=== PATIENT | male | born 1980 | race Caucasian/White ===

== ENCOUNTER → 2016-12-25 | Outpatient (CLI) | payer BC ==
--- NOTE | 2016-12-26 07:32 | REP ---
RIGHT SECOND FINGER SERIES: 12/25/2016 CLINICAL HISTORY: The patient states unable to flex finger for about 6 months. FINDINGS: The four view show the MCP and IP joints intact. There is no contour deformity of the finger. I do not see subluxation or mallet deformity of the finger. There is no focal bone lesion. Adjacent bones are intact. IMPRESSION: 1. Negative radiograph for fracture, avulsion or other acute finding. Signed by Valente Jensen MD 12/26/2016 09:32 A
== END ==
LOC: M RAD 16:13
PROVIDERS: ATTEND Physician Assistant
DX: S69.91XA Unspecified injury of right wrist, hand and finger(s), initial encounter (principal); X58.XXXA Exposure to other specified factors, initial encounter; Y92.89 Other specified places as the place of occurrence of the external cause; Y93.89 Activity, other specified; Y99.8 Other external cause status

== ENCOUNTER 2017-02-11 10:42 | Emergency (ER) | payer OTHER, BC ==
[~2017-02-11] VITALS: Ht 162.6 cm; Wt 58.6 kg
[2017-02-11 10:42] VITALS: BP 134/94
[2017-02-11] MEDS ORDERED: ALEV220C2 PO (10:52)
[2017-02-11] MEDS ORDERED: IBUP80TA PO (11:45)
== END 2017-02-11 12:15 | disposition home or self-care (01) ==
LOC: M ED 10:42
DX: S69.91XA Unspecified injury of right wrist, hand and finger(s), initial encounter (principal); X50.9XXA Other and unspecified overexertion or strenuous movements or postures, initial encounter; Y92.9 Unspecified place or not applicable; Y93.89 Activity, other specified; Y99.0 Civilian activity done for income or pay; Z88.5 Allergy status to narcotic agent

== ENCOUNTER 2017-02-15 07:43 | Emergency (ER) | payer OTHER, BC ==
[~2017-02-15] VITALS: Ht 162.6 cm; Wt 58.6 kg
[~2017-02-15 07:43] MED LIST: ALEV220C2 PO; IBUP80TA PO
[2017-02-15] MEDS ORDERED: DICL75TA PO (09:03)
[2017-02-15 09:09] VITALS: BP 143/92
== END 2017-02-15 09:10 | disposition home or self-care (01) ==
LOC: M ED 07:43
DX: M77.8 Other enthesopathies, not elsewhere classified (principal); Z88.5 Allergy status to narcotic agent

== ENCOUNTER → 2019-06-08 | Outpatient (REF) | payer MEDICAID ==
[~2019-06-08] MED LIST changes: +DICL75TA PO
[2019-06-08 14:49] LABS: SEMEN APPEARANCE OPAQUE (OPAQUE); SEMEN VISCOSITY LIQUID (LIQUID); SEMEN pH 8.5 (7.0-8.0); WBC CONCENTRATION >1 M/ml (<=1 M/ml)
== END ==
LOC: M LAB REF 14:01
PROVIDERS: ATTEND Preventive Medicine Undersea and Hyperbaric Medicine
DX: Z30.8 Encounter for other contraceptive management (principal)

== ENCOUNTER → 2023-04-28 | Outpatient (CLI) | payer OTHER, MEDICAID | LOC: M LAB 10:14 | PROVIDERS: ATTEND Physician Assistant Medical | DX: R07.0 Pain in throat (principal) ==

== ENCOUNTER → 2023-05-02 | Outpatient (CLI) | payer OTHER | LOC: M RAD 12:35 | PROVIDERS: ATTEND Physician Assistant Medical | DX: E04.1 Nontoxic single thyroid nodule (principal); R07.0 Pain in throat ==

== ENCOUNTER 2023-06-10 07:39 | Day surgery (SDC) | payer OTHER ==
[~2023-06-10] VITALS: Ht 162.6 cm; Wt 60.3 kg
[~2023-06-10 07:39] MED LIST changes: +NS 1,000 ML IV ONE; +PANT20TA6 PO
[2023-06-10] MEDS ORDERED: propofoL 200 MG/20 ML VIAL As Ordered ONE (08:54)
[2023-06-10] MEDS ORDERED: LIDOCAINE 2% 100MG/5ML SDV (FOR ANES.) As Ordered ONE (08:54)
[2023-06-10 08:58] VITALS: TEMP 98
[2023-06-10 09:17] VITALS: BP 136/87; O2SAT 99
== END 2023-06-10 09:45 | disposition home or self-care (01) ==
LOC: M OPP 07:39
PROVIDERS: ATTEND Internal Medicine Gastroenterology
DX: F45.8 Other somatoform disorders (principal); J02.9 Acute pharyngitis, unspecified; Z87.891 Personal history of nicotine dependence; Z79.899 Other long term (current) drug therapy; Z88.5 Allergy status to narcotic agent

== ENCOUNTER → 2023-08-11 | Outpatient (CLI) | payer OTHER ==
[~2023-08-11] MED LIST changes: -NS 1,000 ML IV ONE
== END ==
LOC: M RAD 14:01
PROVIDERS: ATTEND Physician Assistant Medical
DX: E04.2 Nontoxic multinodular goiter (principal)

== ENCOUNTER → 2024-02-08 | Outpatient (CLI) | payer OTHER | LOC: M RAD 07:47 | PROVIDERS: ATTEND Physician Assistant Medical | DX: E04.1 Nontoxic single thyroid nodule (principal) ==